=== PATIENT | female | born 1990 | race Caucasian/White ===

== ENCOUNTER 2022-09-29 16:48 | Emergency (ER) | payer MEDICAID ==
[~2022-09-29] VITALS: Ht 154.9 cm; Wt 72.6 kg
[2022-09-29 17:00] VITALS: BP_SYST 131
--- NOTE | 2022-09-29 17:00 | NUR ---
Placed in room 08 . Placed on security monitor, blood pressure machine and pulse oximeter. To gown for exam. Side rails up. Report given to BELINDA GUILLORY.
--- NOTE | 2022-09-29 17:08 | NUR ---
PATIENT CAME IN FROM HOME C/O LOWER ABD PAIN X 2 DAYS RADIATING TO BACK. PT HAS HX OF C-SECTIONS X 2, OVARIAN CYST, HYPOTHYROIDISM. DENIES ADDITIONAL MEDICAL HX. DENIES USE OF DRUGS, ALCOHOL AND TOBACCO. PT IS A&OX4, CALM AND COOPERATIVE, VSS, IN NO ACUTE STRESS AT THIS TIME. CARE TO BE PROVIDED ORDERED.
--- NOTE | 2022-09-29 17:24 | NUR ---
ER Dr. FONTANA at bedside examining patient.
[2022-09-29 17:34] LABS: BILIRUBIN,URINE NEGATIVE (NEGATIVE); COLOR,URINE YELLOW (YELLOW); GLUCOSE,URINE TRACE (NEGATIVE); KETONES,URINE TRACE (NEGATIVE); NITRITE, URINE NEGATIVE (NEGATIVE); PROTEIN URINE NEGATIVE (NEGATIVE)
[2022-09-29 17:43] LABS: BLOOD, URINE TRACE (NEGATIVE); CLARITY/URINE HAZY (CLEAR); LEUKOCYTE ESTERASE ,URINE 1+ (NEGATIVE)
[2022-09-29 17:44] LABS: BACTERIA,URINE FEW /HPF (None Seen); MUCUS,URINE None Seen /LPF (None Seen); RBC,URINE NONE SEEN /HPF (0-3)
[2022-09-29 18:29] LABS: CALCIUM 9.1 mg/dL (8.4-11.0); CREATININE 0.68 mg/dL (0.55-1.30)
[2022-09-29 18:45] LABS: BASOPHILS % (AUTO) 0.3 % (0.0-2.0); EOSINOPHILS % (AUTO) 0.3 % (0.0-4.0); HEMATOCRIT 38.7 % (36-48); HEMOGLOBIN 13.1 g/dL (12.0-16.0); LYMPHOCYTES # (AUTO) 1.9 K/uL (1.0-5.5); MEAN CORPUSCULAR HEMOGLOBIN 30 pg (27-31); MEAN CORPUSCULAR HGB CONC 34 % (32-36); MEAN CORPUSCULAR VOLUME 87 fL (79.0-98.0); MONOCYTES # (AUTO) 0.7 K/uL (0.0-1.0); MONOCYTES % (AUTO) 6.7 % (1.7-9.3); NEUTROPHILS # (AUTO) 8.4 K/uL (1.8-7.7); NEUTROPHILS % (AUTO) 75.7 % (40.0-70.0); PLATELET COUNT (AUTO) 300 K/uL (130-430); RED BLOOD CELL COUNT(AUTO) 4.43 MIL/uL (4.2-6.2); WHITE BLOOD COUNT (AUTO) 11.1 K/uL (4.8-10.8)
[2022-09-29 18:47] LABS: ALBUMIN 3.6 g/dL (3.4-4.8); TOTAL BILIRUBIN 0.1 mg/dL (0.0-1.0)
[2022-09-29] MEDS ORDERED: NITR-85 PO (18:57)
--- NOTE | 2022-09-29 19:03 | NUR ---
Patient given written and verbal discharge instructions and verbalizes understanding. ER DR. ADDI OLSEN discussed with patient the results and treatment provided. Patient in stable condition. ID arm band removed. IV catheter removed intact and dressing applied, no active bleeding. Rx of MACROBID given. Patient educated on pain management and to follow up with PMD. Pain Scale 3/10. Opportunity for questions provided and answered. Medication side effect fact sheet provided.
== END 2022-09-29 19:03 | disposition home or self-care (01) ==
LOC: SED 16:48
DX: O26.891 Other specified pregnancy related conditions, first trimester (principal); Z3A.01 Less than 8 weeks gestation of pregnancy; Z79.899 Other long term (current) drug therapy
CPT/HCPCS: 36415; 76801; 80053; 81000; 81025; 84702; 85025; 86900; 86901; 87086; 99284

== ENCOUNTER 2022-10-01 16:23 | Emergency (ER) | payer MEDICAID ==
[~2022-10-01] VITALS: Ht 154.9 cm; Wt 72.6 kg
[~2022-10-01 16:23] MED LIST: NITR-85 PO
[2022-10-01 16:45] VITALS: BP_SYST 120
--- NOTE | 2022-10-01 16:56 | NUR ---
PPatient triaged and placed in waiting room. VSS and patient appears in no acute distress at this time. Accompanied by 2 SONS, awaiting available bed, and MD notified of need for MSE.
[2022-10-01 17:18] LABS: BILIRUBIN,URINE NEGATIVE (NEGATIVE); BLOOD, URINE NEGATIVE (NEGATIVE); CLARITY/URINE CLEAR (CLEAR); COLOR,URINE YELLOW (YELLOW); GLUCOSE,URINE NEGATIVE (NEGATIVE); KETONES,URINE NEGATIVE (NEGATIVE); LEUKOCYTE ESTERASE ,URINE 1+ (NEGATIVE); NITRITE, URINE NEGATIVE (NEGATIVE); PROTEIN URINE NEGATIVE (NEGATIVE); UROBILINOGEN,URINE 0.2 (0.2-1.0)
[2022-10-01 17:26] LABS: BASOPHILS # (AUTO) 0.1 K/uL (0.0-0.2); BASOPHILS % (AUTO) 0.7 % (0.0-2.0); EOSINOPHILS # (AUTO) 0.1 K/uL (0.0-0.4); EOSINOPHILS % (AUTO) 0.8 % (0.0-4.0); HEMATOCRIT 38.2 % (36-48); HEMOGLOBIN 13.1 g/dL (12.0-16.0); LYMPHOCYTES # (AUTO) 2.1 K/uL (1.0-5.5); MEAN CORPUSCULAR HEMOGLOBIN 30 pg (27-31); MEAN CORPUSCULAR HGB CONC 34 % (32-36); MEAN CORPUSCULAR VOLUME 87 fL (79.0-98.0); MONOCYTES # (AUTO) 0.6 K/uL (0.0-1.0); MONOCYTES % (AUTO) 6.8 % (1.7-9.3); NEUTROPHILS % (AUTO) 67.7 % (40.0-70.0); PLATELET COUNT (AUTO) 299 K/uL (130-430); RED BLOOD CELL COUNT(AUTO) 4.37 MIL/uL (4.2-6.2); WHITE BLOOD COUNT (AUTO) 8.9 K/uL (4.8-10.8)
[2022-10-01 17:27] LABS: BACTERIA,URINE RARE /HPF (None Seen); MUCUS,URINE None Seen /LPF (None Seen); RBC,URINE 0-3 /HPF (0-3)
--- NOTE | 2022-10-01 18:24 | NUR ---
DR. FULLER IN TRIAGE ROOM TO SEE PT.
--- NOTE | 2022-10-01 18:32 | NUR ---
Patient given written and verbal discharge instructions and verbalizes understanding. ER MD discussed with patient the results and treatment provided. Patient in stable condition. ID arm band removed. Patient educated on pain management and to follow up with PMD. Pain Scale O/10. Opportunity for questions provided and answered. Medication side effect fact sheet provided.
== END 2022-10-01 18:32 | disposition home or self-care (01) ==
LOC: SED 16:23
DX: Z00.00 Encounter for general adult medical examination without abnormal findings (principal); Z79.899 Other long term (current) drug therapy
CPT/HCPCS: 36415; 81000; 84702; 85025; 99283